=== PATIENT | male | born 1970 | race Caucasian/White ===

== ENCOUNTER 2017-11-02 09:41 | Emergency (ER) | payer OTHER ==
[2017-11-02] MEDS ORDERED: ASPIRIN 81 MG CHEWABLE TABLET ONE (09:55)
[2017-11-02 10:09] LABS: Absolute Monocytes 0.7 K/uL (0.1-1.3); Absolute Neutrophil 6.3 K/uL (1.8-8.0); Basophils % 0.6 % (0-1.3); Eosinophils % 5.6 % (0-4.4); Hematocrit 45.1 % (39.6-49.0); Lymphocytes % 21.3 % (15.3-44.8); MCH 31.1 pg (27.0-35.0); MCV 88.7 fL (80-100); MPV 7.6 fL (7.6-11.3); Monocytes % 6.9 % (3.3-12.3); RBC Red Blood Cell Count 5.08 M/uL (4.33-5.43)
--- NOTE | 2017-11-02 10:19 | RAD REPORT ---
EXAM DESCRIPTION: CT - Head Brain Wo Cont - 11/02/2017 10:11 am CLINICAL HISTORY: tingling, weakness left hand TIA/CVA COMPARISON: No comparisons TECHNIQUE: All CT scans are performed using dose optimization technique as appropriate and may inclu de automated exposure control or mA/KV adjustment according to patient size. FINDINGS: No intracranial hemorrhage, hydrocephalus or extra-axial fluid collection.No areas of brai n edema or evidence of midline shift. The paranasal sinuses and mastoids are clear. The calvarium is intact. IMPRESSION: No acute intracranial abnormality.
--- NOTE | 2017-11-02 10:22 | RAD REPORT ---
EXAM DESCRIPTION: RAD - Chest Single View - 11/02/2017 10:17 am CLINICAL HISTORY: CHEST PAIN Chest pain. COMPARISON: No comparisons FINDINGS: Portable technique limits examination quality. The lungs are grossly clear. The heart is normal in size. No displaced fractures. IMPRESSION: No acute intrathoracic process suspected.
[2017-11-02 10:30] LABS: Potassium 3.6 mmol/L (3.5-5.1)
[2017-11-02 11:39] LABS: Urine Blood 1+ (NEG); Urine Glucose NEGATIVE (NEG); Urine Protein NEGATIVE (NEG); Urine Specific Gravity 1.025 (1.005-1.030); Urine pH 5.5 (5.0-7.0)
--- NOTE | 2017-11-02 14:23 | EDPHYS ---
Physician Documentation [facility] Name: Wilber Fletcher Age: 47 yrs Sex: Male : 1970 Arrival Date: 11/02/2017 Time: 09:43 Bed 6 Private MD: ED Physician Cosmo Baldwin HPI: 11/02 10:38 This 47 yrs old Male presents to ER via EMS with complaints of Chest Pain > 30 y/o, Arm kb Pain. 10:38 The patient or guardian reports chest pain that is located primarily in the left kb clavicle. Onset: this morning. The pain radiates to the left arm. Associated signs and symptoms: Pertinent positives: lower extremity pain, nausea, Pertinent negatives: abdominal pain, cough, diaphoresis, dizziness, headache, lower extremity swelling, lightheadedness, near syncope, palpitations, recent travel, shortness of breath, syncope, vomiting. The chest pain is described as squeezing. Duration: The patient or guardian reports a single episode, that is now resolved. Modifying factors: The symptoms are alleviated by nothing. the symptoms are aggravated by nothing. Severity of pain: At its worst the pain was mild moderate in the emergency department the pain is unchanged. The patient has not experienced similar symptoms in the past. The patient has not recently seen a physician. Pt states [place] was [place], [place] off shore and started having tingling/weakness in left hand that radiated up to elbow. States it feels like someone squeezed my elbow a couple of times. States he also had a couple of episodes of discomfort to left shoulder/chest area. 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 States his father of [place] last year at age 67. Denies any medical history.. Historical: - Allergies: 09:53 Sulfa (Sulfonamide Antibiotics); jl7 - Home Meds: 09:53 Flonase Nasal [Active]; jl7 - PMHx: 09:53 None; jl7 - Immunization history:: Adult Immunizations up to date. - Social history:: Smoking status: Patient uses tobacco products, smokes one pack cigarettes per day. - Ebola Screening: : Patient denies travel to an Ebola-affected area in the 21 days before illness onset. ROS: 10:38 Constitutional: Negative for fever, chills, and weight loss, Respiratory: Negative for kb shortness of breath, cough, wheezing, and pleuritic chest pain, Abdomen/GI: Negative for abdominal pain, nausea, vomiting, diarrhea, and constipation, Back: Negative for injury and pain, Skin: Negative for injury, rash, and discoloration. 10:38 Cardiovascular: Positive for chest pain, of the anterior aspect of left upper chest. 10:38 Neuro: Positive for tingling, weakness, of the left hand. Exam: 10:38 Constitutional: This is a well developed, well nourished patient who is awake, alert, kb and in no acute distress. Head/Face: Normocephalic, atraumatic. Chest/axilla: Normal chest wall appearance and motion. Nontender with no deformity. No lesions are appreciated. Cardiovascular: Regular rate and rhythm with a normal S1 and S2. No gallops, murmurs, or rubs. Normal PMI, no JVD. No pulse deficits. Respiratory: Lungs have equal breath sounds bilaterally, clear to auscultation and percussion. No rales, rhonchi or wheezes noted. No increased work of breathing, no retractions or nasal flaring. Abdomen/GI: Soft, non-tender, with normal bowel sounds. No distension or tympany. No guarding or rebound. No evidence of tenderness throughout. Skin: Warm, dry with normal turgor. Normal color with no rashes, no lesions, and no evidence of cellulitis. MS/ Extremity: Pulses equal, no cyanosis. Neurovascular intact. Full, normal range of motion. Neuro: Awake and alert, GCS 15, oriented to person, place, time, and situation. Cranial nerves II-XII grossly intact. Motor strength 5/5 in all extremities. Sensory grossly intact. Cerebellar exam normal. Normal gait. Vital Signs: 09:45 BP 131 / 73; Pulse 89; Resp 18; Temp 98(TE); Pulse Ox 97% on R/A; tw2 10:27 BP 133 / 75; Pulse 75; Resp 14; Pulse Ox 95% on R/A; tw2 11:30 BP 117 / 91; Pulse 74; Resp 16; Pulse Ox 97% on R/A; jl7 12:33 BP 108 / 56; Pulse 67; Resp 14; Pulse Ox 95% ; jl7 13:30 BP 120 / 80; Pulse 61; Resp 17; Pulse Ox 96% on R/A; tw2 14:03 BP 118 / 78; Pulse 70; Resp 17; Pulse Ox 97% on R/A; tw2 MDM: 09:50 Patient medically screened. kb 10:38 HEART Score: History: Slightly Suspicious (0), ECG: Normal (0), Age: > 45 and < 65 kb years (1), Risk Factors: 1 or 2 risk factors (1), [+ Family HX] Troponin: < or = 1 x Normal Limit (0). The patient was given aspirin in the Emergency Department. HELENA Risk Score: TOTAL SCORE = 0. Data reviewed: vital signs, nurses notes. Data interpreted: vendor representatives: rate is 75 beats/min, rhythm is normal sinus rhythm, with no ectopy, Interpretation: normal rate, normal rhythm, Pulse oximetry: on room air is 95 %. Interpretation: normal. 14:21 Counseling: I had a detailed discussion with the patient and/or guardian regarding: the kb historical points, exam findings, and any diagnostic results supporting the discharge/admit diagnosis, lab results, radiology results, the need for outpatient follow up, a certified pharmacy technician, a family practitioner, to return to the emergency department if symptoms worsen or persist or if there are any questions or concerns that arise at home. 11/02 09:50 Order name: Basic Metabolic Panel; Complete Time: 10:37 gs 11/02 09:50 Order name: CBC with Diff; Complete Time: 10:12 11/02 09:50 Order name: Troponin (emerg Dept Use Only); Complete Time: 10:47 11/02 09:50 Order name: XRAY Chest (1 view); Complete Time: 10:23 gs 11/02 11:18 Order name: Urine Dipstick--Ancillary (enter results); Complete Time: 11:41 ag 11/02 12:08 Order name: Troponin (emerg Dept Use Only); Complete Time: 14:21 kb 11/02 09:50 Order name: EKG; Complete Time: 09:50 11/02 09:50 Order name: Cardiac monitoring; Complete Time: 09:55 11/02 09:50 Order name: EKG - Nurse/Tech; Complete Time: 09:55 11/02 09:50 Order name: IV Saline Lock; Complete Time: 10:04 11/02 09:50 Order name: Labs collected and sent; Complete Time: 10:05 gs 11/02 09:50 Order name: CT Head Brain wo Cont; Complete Time: 10:19 kb 11/02 12:08 Order name: EKG; Complete Time: 12:08 kb 11/02 09:50 Order name: O2 Per Protocol; Complete Time: 09:55 gs 11/02 09:50 Order name: O2 Sat Monitoring; Complete Time: 09:55 11/02 12:08 Order name: Repeat Cardiac Enzymes at: 1350; Complete Time: 14:03 kb 11/02 12:08 Order name: EKG - Nurse/Tech; Complete Time: 14:03 kb Administered Medications: 10:44 Drug: Aspirin 81 mg Route: PO; tw2 10:44 Follow up: Response: No adverse reaction tw2 Disposition: 11/02/17 14:22 Discharged to Home. Impression: Pain in left arm. - Condition is Stable. - Discharge Instructions: Musculoskeletal Pain. - Medication Reconciliation Form, Thank You Letter, Antibiotic Education, Prescription Opioid Use form. - Follow up: Emergency Department; When: As needed; Reason: Worsening of condition. Follow up: Private Physician; When: 2 - 3 days; Reason: Recheck today's complaints, Continuance of care, Re-evaluation by your physician. Addendum: 11/03/2017 16:06 Co-signature as Attending Physician, Cosmo Baldwin MD. g s Signatures: Dispatcher [employer] EDDenise Jones, SAMPLE SAWYER-C SAMPLE SAWYER-Ckb Susie Manriquez RN RN tw2 Sasha Gómez RN RN jl7 Cosmo Baldwin MD MD Corrections: (The following items were deleted from the chart) 11/02 14:31 14:22 11/02/2017 14:22 Discharged to Home. Impression: Pain in left arm. Condition is tw2 Stable. Forms are Medication Reconciliation Form, Thank You Letter, Antibiotic Education, Prescription Opioid Use. Follow up: Emergency Department; When: As needed; Reason: Worsening of condition. Follow up: Private Physician; When: 2 - 3 days; Reason: Recheck today's complaints, Continuance of care, Re-evaluation by your physician. kb
--- NOTE | 2017-11-02 14:23 | ER ---
Nurse's Notes [facility] Name: Wilber Fletcher Age: 47 yrs Sex: Male : 1970 Arrival Date: 11/02/2017 Time: 09:43 Bed 6 Private MD: Diagnosis: Pain in left arm Presentation: 11/02 09:45 Transition of care: patient was not received from another setting of care. Onset of tw2 symptoms was November 02, 2017. Risk Assessment: Do you want to hurt yourself or someone else? Patient reports no desire to harm self or others. Initial Sepsis Screen: Does the patient meet any 2 criteria? No. Patient's initial sepsis screen is negative. Does the patient have a suspected source of infection? No. Patient's initial sepsis screen is negative. Care prior to arrival: None. 09:45 Acuity: EWA 3 tw2 09:45 Method Of Arrival: EMS: [facility] tw2 09:48 Presenting complaint: Patient states: [place] shore and started twitching in jl7 the fingers and then a "squeezing" up to the elbow, hand went weak and nausea for a min and got flushed. Took two 81 mg Aspirin. Came in to [facility] [employer], on the way in began feeling the squeezing in elbow and left sided soreness in chest and nausea again, took another 81 mg Aspirin. EMS states: Toned out from [employer] for possible [place]. Triage Assessment: 09:45 General: Appears in no apparent distress. uncomfortable, Behavior is calm, cooperative, jl7 appropriate for age. Pain: Complains of pain in left arm Pain radiates to anterior aspect of left upper chest Pain currently is 0 out of 10 on a pain scale. at worst was 3 out of 10 on a pain scale. Quality of pain is described as squeezing, Sore Pain began 2 hours ago. Is intermittent. EENT: No signs and/or symptoms were reported regarding the EENT system. Neuro: Level of Consciousness is awake, alert, obeys commands, Oriented to person, place, time, situation. Cardiovascular: Patient's skin is warm and dry. Respiratory: Airway is patent Respiratory effort is even, unlabored, Respiratory pattern is regular, symmetrical. GI: Reports nausea, Patient currently denies diarrhea, vomiting. : No signs and/or symptoms were reported regarding the genitourinary system. Derm: Skin is pink, warm \\T\\ dry. Musculoskeletal: No signs and/or symptoms reported regarding the musculoskeletal system. Historical: - Allergies: :53 Sulfa (Sulfonamide Antibiotics); jl7 - Home Meds: 09:53 Flonase Nasal [Active]; jl7 - PMHx: :53 None; jl7 - Immunization history:: Adult Immunizations up to date. - Social history:: Smoking status: Patient uses tobacco products, smokes one pack cigarettes per day. - Ebola Screening: : Patient denies travel to an Ebola-affected area in the 21 days before illness onset. Screenin:44 Abuse screen: Denies threats or abuse. Nutritional screening: No deficits noted. tw2 Tuberculosis screening: No symptoms or risk factors identified. Fall Risk None identified. Assessment: 09:53 General: Appears in no apparent distress. Behavior is calm, cooperative, appropriate tw2 for age. Pain: Complains of pain in chest Pain radiates to left arm Pain began 2 hours ago. Neuro: Level of Consciousness is awake, alert, obeys commands, Oriented to person, place, time, situation. Cardiovascular: Heart tones S1 S2 Capillary refill < 3 seconds Patient's skin is warm and dry. Respiratory: Airway is patent Respiratory effort is even, unlabored, Respiratory pattern is regular, symmetrical, Breath sounds are clear. GI: No signs and/or symptoms were reported involving the gastrointestinal system. Abdomen is round non-distended, Bowel sounds present X 4 quads. : No signs and/or symptoms were reported regarding the genitourinary system. EENT: No signs and/or symptoms were reported regarding the EENT system. Derm: Skin is intact, is healthy with good turgor, Skin temperature is warm. 09:54 Reassessment: instructed to HOLD aspirin at this time until after CAT scan results per tw2 ROSY Amaya. 10:29 Reassessment: Patient appears in no apparent distress at this time. No changes from tw2 previously documented assessment. Patient and/or family updated on plan of care and expected duration. Pain level reassessed. Patient is alert, oriented x 3, equal unlabored respirations, skin warm/dry/pink. 11:30 Reassessment: Patient and/or family updated on plan of care and expected duration. Pain jl7 level reassessed. Patient is alert, oriented x 3, equal unlabored respirations, skin warm/dry/pink. 14:04 Reassessment: Patient appears in no apparent distress at this time. No changes from tw2 previously documented assessment. Patient and/or family updated on plan of care and expected duration. Pain level reassessed. Patient is alert, oriented x 3, equal unlabored respirations, skin warm/dry/pink. 14:30 Reassessment: Patient appears in no apparent distress at this time. No changes from tw2 previously documented assessment. Patient and/or family updated on plan of care and expected duration. Pain level reassessed. Patient is alert, oriented x 3, equal unlabored respirations, skin warm/dry/pink. Vital Signs: 09:45 BP 131 / 73; Pulse 89; Resp 18; Temp 98(TE); Pulse Ox 97% on R/A; tw2 10:27 BP 133 / 75; Pulse 75; Resp 14; Pulse Ox 95% on R/A; tw2 11:30 BP 117 / 91; Pulse 74; Resp 16; Pulse Ox 97% on R/A; jl7 12:33 BP 108 / 56; Pulse 67; Resp 14; Pulse Ox 95% ; jl7 13:30 BP 120 / 80; Pulse 61; Resp 17; Pulse Ox 96% on R/A; tw2 14:03 BP 118 / 78; Pulse 70; Resp 17; Pulse Ox 97% on R/A; tw2 ED Course: 09:43 Patient arrived in ED. tw2 09:44 Arm band placed on. tw2 09:44 Placed in gown. Bed in low position. Call light in reach. forging dies final finisher on. Pulse ox tw2 on. NIBP on. 09:44 Patient maintains SpO2 saturation greater than 95% on room air. tw2 09:45 Triage completed. tw2 09:46 Susie Manriquez, VIKKI is Primary Nurse. tw2 09:50 Den[facility] uMrray F[facility]-C [facility]. kb 09:50 Cosmo Baldwin MD is Attending Physician. kb 09:53 EKG done, by perinatal tech. reviewed by Denise ARIAS. at1 09:55 No provider procedures requiring assistance completed. tw2 10:04 Initial lab(s) drawn, by nd, sent to lab. Inserted saline lock: 20 gauge in right jb1 antecubital area, using aseptic technique. Blood collected. 10:12 CT Head Brain wo Cont In Process Unspecified. EDMS 10:18 XRAY Chest (1 view) In Process Unspecified. EDMS 14:09 EKG done, by perinatal tech. reviewed by Denise ARIAS Repeat EKG. at1 14:31 IV discontinued, intact, bleeding controlled, No redness/swelling at site. Pressure tw2 dressing applied. Administered Medications: 10:44 Drug: Aspirin 81 mg Route: PO; tw2 10:44 Follow up: Response: No adverse reaction tw2 Outcome: 14:22 Discharge ordered by . kb 14:31 Discharged to home ambulatory, with family. tw2 14:31 Condition: stable 14:31 Discharge instructions given to patient, family, significant other, Instructed on discharge instructions, follow up and referral plans. Demonstrated understanding of instructions, follow-up care. 14:31 Patient left the ED. tw2 Signatures: Dispatcher [employer] Niranjan Franco jb1 Denise Murray FNP-C FNP-Jade Handy, taxi dancer EKG Tat1 Susie Manriquez, RN RN tw2 Sasha Gómez, RN RN jl7
--- NOTE | 2017-11-02 17:11 | EKG ---
Test Date: 2017-11-02 Test Time: 13:48:00 Correctional Officer: LALIT MEASUREMENT RESULTS: Intervals: Rate: 61 UT: 130 QRSD: 88 QT: 424 QTc: 426 [place]: P: 51 UT: 130 QRS: 33 T: 32 INTERPRETIVE STATEMENTS: Normal sinus rhythm Normal ECG Compared to ECG 11/02/2017 09:51:01 No significant changes Electronically Signed On 11-02-17 17:10:27 CDT by Han Cortes
--- NOTE | 2017-11-02 17:14 | EKG ---
Test Date: 2017-11-02 Test Time: 09:51:01 Outside Sales Account Manager: LALIT MEASUREMENT RESULTS: Intervals: Rate: 81 [place]: 134 QRSD: 92 QT: 366 QTc: 425 [place]: P: 23 [place]: 134 QRS: 16 T: 26 INTERPRETIVE STATEMENTS: Normal sinus rhythm Normal ECG No previous ECG available for comparison Electronically Signed On 11-02-17 17:11:08 CDT by Han Cortes
== END 2017-11-02 14:31 | disposition home or self-care (01) ==
LOC: ER 09:41
DX: M79.602 Pain in left arm (principal); F17.210 Nicotine dependence, cigarettes, uncomplicated; Z88.2 Allergy status to sulfonamides
CPT/HCPCS: 36415; 70450; 71045; 80048; 81003; 84484; 85025; 93005; 99285